=== PATIENT | male | born 1950 | race Caucasian/White ===

== ENCOUNTER 2024-02-27 15:35 | Emergency (ER) | payer MEDICARE, OTHER, SELFPAY ==
[~2024-02-27] VITALS: Ht 172.7 cm; Wt 81.6 kg
[2024-02-27 15:44] VITALS: BP_DIAS 74; O2SAT 98
[2024-02-27 15:45] VITALS: BP_SYST 122; TEMP 98
[2024-02-27] MEDS ORDERED: OMEP40CA4 PO (16:09)
[2024-02-27] MEDS ORDERED: LOSA25TA13 PO (16:09)
[2024-02-27 17:10] LABS: BASO % 0.4 % (0.0-1.0); EOS # 0.1 10^3/uL (0.0-0.5); EOS % 0.8 % (0.0-3.0); HEMATOCRIT 36.1 % (42.0-52.0); HEMOGLOBIN 12.4 g/dl (13.5-17.5); LYMPH # 1.2 10^3/uL (1.5-5.0); LYMPH % 13.6 % (24.0-44.0); MEAN CORPUSCULAR HEMOGLOBIN 33.4 pg (27.0-33.0); MEAN CORPUSCULAR HGB CONC 34.3 g/dl (32.0-36.5); MEAN CORPUSCULAR VOLUME 97.3 fl (80.0-96.0); MONO # 1.1 10^3/uL (0.0-0.8); MONO % 12.2 % (2.0-8.0); NEUTROPHILS # 6.5 10^3/uL (1.5-8.5); NEUTROPHILS % 72.2 % (36.0-66.0); PLATELET COUNT, AUTOMATED 300 10^3/uL (150-450); RED BLOOD COUNT 3.71 10^6/uL (4.30-6.10); WHITE BLOOD COUNT 8.9 10^3/uL (4.0-10.0)
[2024-02-27 17:33] LABS: LIPASE 55 U/L (12-53)
[2024-02-27 17:35] LABS: ALKALINE PHOSPHATASE 99 U/L (46-116); ALT/SGPT 180 U/L (7.0-40); AST/SGOT 112 U/L (<34); BILIRUBIN,DIRECT 0.2 MG/DL (<0.4); BILIRUBIN,TOTAL 0.4 MG/DL (0.3-1.2); BLOOD UREA NITROGEN 10 MG/DL (9-23); CALCIUM LEVEL 9.7 MG/DL (8.3-10.6); CARBON DIOXIDE LEVEL 25 MMOL/L (20-31); CHLORIDE LEVEL 101 MMOL/L (98-107); CREATININE FOR GFR 0.74 MG/DL (0.70-1.30); GLOMERULAR FILTRATION RATE > 60.0 (>42); GLUCOSE, FASTING 86 MG/DL (74-106); POTASSIUM SERUM 4.1 MMOL/L (3.5-5.1); SODIUM LEVEL 131 MMOL/L (136-145); TOTAL PROTEIN 7.1 G/DL (5.7-8.2)
[2024-02-27 17:47] LABS: INR 0.95; PARTIAL THROMBOPLASTIN TIME 26.9 SECONDS (24.8-34.2); PROTHROMBIN TIME 12.4 SECONDS (12.5-14.5)
[2024-02-28] MEDS ORDERED: LOSA50TA28 (08:44)
[2024-02-28] MEDS ORDERED: CIPR500T39 PO (13:53)
== END 2024-02-28 01:32 | disposition left against medical advice (07) ==
LOC: M ED 15:35
DX: R31.9 Hematuria, unspecified (principal); I10 Essential (primary) hypertension; C61 Malignant neoplasm of prostate; Z79.811 Long term (current) use of aromatase inhibitors; Z79.899 Other long term (current) drug therapy; Z53.9 Procedure and treatment not carried out, unspecified reason

== ENCOUNTER 2024-02-28 08:36 | Emergency (ER) | payer MEDICARE ==
[~2024-02-28] VITALS: Ht 171.4 cm; Wt 79.4 kg
[~2024-02-28 08:36] MED LIST: LOSA25TA13 PO; OMEP40CA4 PO
[2024-02-28] MEDS ORDERED: LOSA50TA28 (08:44)
[2024-02-28 10:19] LABS: HEMATOCRIT 35.9 % (42.0-52.0); HEMOGLOBIN 12.4 g/dl (13.5-17.5); MEAN CORPUSCULAR HEMOGLOBIN 33.5 pg (27.0-33.0); MEAN CORPUSCULAR HGB CONC 34.5 g/dl (32.0-36.5); PLATELET COUNT, AUTOMATED 323 10^3/uL (150-450); WHITE BLOOD COUNT 9.3 10^3/uL (4.0-10.0)
[2024-02-28 10:34] LABS: INR 0.97; PARTIAL THROMBOPLASTIN TIME 26.9 SECONDS (24.8-34.2); PROTHROMBIN TIME 12.7 SECONDS (12.5-14.5)
[2024-02-28 10:47] LABS: BLOOD UREA NITROGEN 9 MG/DL (9-23); CALCIUM LEVEL 9.8 MG/DL (8.3-10.6); CARBON DIOXIDE LEVEL 25 MMOL/L (20-31); CHLORIDE LEVEL 103 MMOL/L (98-107); CREATININE FOR GFR 0.67 MG/DL (0.70-1.30); GLOMERULAR FILTRATION RATE > 60.0 (>42); GLUCOSE, FASTING 111 MG/DL (74-106); POTASSIUM SERUM 3.7 MMOL/L (3.5-5.1); SODIUM LEVEL 134 MMOL/L (136-145)
[2024-02-28] MEDS: LIDOCAINE 2% 5ML JELLY UROJET TOP ONE (11:08)
[2024-02-28] MEDS ORDERED: CIPR500T39 PO (13:53)
[2024-02-28 14:00] VITALS: O2SAT 97
[2024-02-28 14:01] VITALS: BP 163/76; TEMP 98.6
== END 2024-02-28 14:30 | disposition home or self-care (01) ==
LOC: M ED 08:36
DX: N30.01 Acute cystitis with hematuria (principal); Z96.0 Presence of urogenital implants; I10 Essential (primary) hypertension; K22.70 Barrett's esophagus without dysplasia; Z96.649 Presence of unspecified artificial hip joint; Z96.659 Presence of unspecified artificial knee joint

== ENCOUNTER 2024-02-28 23:09 | Emergency (ER) | payer MEDICARE ==
[~2024-02-28 23:09] MED LIST changes: +CIPR500T39 PO; +LOSA50TA28
[2024-02-28 23:17] VITALS: TEMP 98.5
[2024-02-29 01:55] VITALS: BP 130/76; O2SAT 100
== END 2024-02-29 02:07 | disposition home or self-care (01) ==
LOC: M ED 23:09
DX: R33.9 Retention of urine, unspecified (principal); I10 Essential (primary) hypertension; Z85.46 Personal history of malignant neoplasm of prostate; N30.40 Irradiation cystitis without hematuria; Z96.0 Presence of urogenital implants; K22.70 Barrett's esophagus without dysplasia; Z96.649 Presence of unspecified artificial hip joint; Z96.659 Presence of unspecified artificial knee joint